=== PATIENT | female | born 1960 | race Caucasian/White ===

== ENCOUNTER 2021-05-21 12:22 | Inpatient (IN) ==
[2021-05-21 13:25] LABS: Basophils % 0.3 % (0.0-0.8); Hematocrit 36.8 VOL% (35.7-47.0); Hemoglobin 13.4 GM/DL (12.0-16.0); Immature Granulocytes % 1.2 %; Immature Granulocytes Absolute 0.13 #; Lymphocytes # 0.5 10*3/uL (1.4-4.0); Lymphocytes % 4.9 % (21.3-54.2); Mean Corpuscular HGB Conc 36.4 GM/DL (32-36); Mean Corpuscular Volume 96.8 FL (87-102); Monocytes % 5.7 % (1.7-12.7); Neutrophils % 87.9 % (38.7-73.9); Platelet Count 228 T/CUMM (130-400); Red Cell Distribution Width 12.9 % (9.3-17.3); White Blood Count 10.5 T/CUMM (4-12)
[2021-05-21 13:38] LABS: Alanine Aminotransferase 17 U/L (13-56); Albumin 2.1 G/DL (3.4-5.0); Alkaline Phosphatase 68 U/L (45-117); Aspartate Amino Transferase 42 U/L (0-37); Bilirubin,Total < 0.39 MG/DL (0.20-1.00); Blood Urea Nitrogen 10 MG/DL (7-18); Calcium 8.4 MG/DL (8.5-10.1); Carbon Dioxide 27 MMOL/L (21-32); Estimated Glom Filtration Rate 102 ML/MIN; Glucose 94 MG/DL (74-106); Osmolality,Calculated 242.1 MOS/KG (273-304); Potassium 3.1 MMOL/L (3.5-5.1); Sodium 121 MMOL/L (136-145); Total Protein 6.7 G/DL (6.4-8.2)
[2021-05-21] MEDS ORDERED: ALBUTEROL/IPRATROPIUM 3 ML NEB RESP TX STA (14:06)
[2021-05-21 14:13] LABS: Band Neutrophils 4 % (0-10); Lymphocytes 11 % (20-55); Segmented Neutrophils 82 % (50-85); Total Cells Counted 100
[2021-05-21] MEDS ORDERED: SODIUM CHLORIDE 0.9% 1,000 ML IV STA (14:13)
[2021-05-21 14:14] LABS: Hypochromasia Slight; Macrocytosis 1+; Toxic Granulation 2+
[2021-05-21 14:15] LABS: Platelet Estimate Normal
[2021-05-21] MEDS ORDERED: POTASSIUM CHLORIDE 20 MEQ TABLET PO STA (14:31)
[2021-05-21] MEDS ORDERED: AZITHROMYCIN 250 MG TABLET PO STA (14:47)
[2021-05-21] MEDS ORDERED: cefTRIAXone 1,000 MG in SODIUM CHLORIDE 0.9% 100 ML IV STA (14:47)
[2021-05-21] MEDS ORDERED: DIAZEPAM 5 MG TABLET PO ONE (15:39)
[2021-05-21] MEDS: POTASSIUM CHLORIDE 20 MEQ TABLET PO SCH ×2 (16:48→20:50)
[2021-05-21] MEDS: PANTOPRAZOLE 40 MG TABLET PO SCH (16:48)
[2021-05-21] MEDS: LACTATED RINGERS 1,000 ML IV SCH (16:49)
[2021-05-21] MEDS: ENOXAPARIN 40 MG/0.4 ML SYRINGE SUBCUT SCH (19:40)
[2021-05-22] MEDS: POTASSIUM CHLORIDE 20 MEQ TABLET PO SCH ×2 (01:38→05:06)
[2021-05-22] MEDS: LACTATED RINGERS 1,000 ML IV SCH (05:07)
[2021-05-22 07:57] LABS: Basophils % 0.2 % (0.0-0.8); Hematocrit 33.2 VOL% (35.7-47.0); Hemoglobin 11.9 GM/DL (12.0-16.0); Immature Granulocytes % 1.1 %; Immature Granulocytes Absolute 0.11 #; Lymphocytes # 0.6 10*3/uL (1.4-4.0); Lymphocytes % 6.6 % (21.3-54.2); Mean Corpuscular HGB Conc 35.8 GM/DL (32-36); Mean Corpuscular Volume 97.9 FL (87-102); Mean Platelet Volume 9.9 FL (9.6-12.0); Monocytes % 7.9 % (1.7-12.7); Neutrophils % 84.2 % (38.7-73.9); Platelet Count 246 T/CUMM (130-400); Red Blood Count 3.39 MC/CUMM (3.8-5.5); Red Cell Distribution Width 13.2 % (9.3-17.3); White Blood Count 9.6 T/CUMM (4-12)
[2021-05-22 08:14] LABS: Calcium 7.7 MG/DL (8.5-10.1); Osmolality,Calculated 248.5 MOS/KG (273-304); Potassium 4.1 MMOL/L (3.5-5.1)
[2021-05-22] MEDS ORDERED: AZITHROMYCIN 250 MG TABLET PO SCH (09:00)
[2021-05-22] MEDS: PANTOPRAZOLE 40 MG TABLET PO SCH (09:49)
[2021-05-22] MEDS: cefTRIAXone 1,000 MG in SODIUM CHLORIDE 0.9% 100 ML IV SCH (09:50)
[2021-05-22] MEDS: SODIUM CHLORIDE 0.9% 1,000 ML IV SCH (09:51)
[2021-05-22] MEDS: ONDANSETRON 4 MG/2 ML VIAL IV PRN (09:51)
[2021-05-22] MEDS: DIAZEPAM 5 MG TABLET PO PRN ×2 (10:06→21:59)
[2021-05-22] MEDS: AZITHROMYCIN INJ 500 MG in SODIUM CHLORIDE 0.9% 250 ML IV SCH (12:14)
[2021-05-22 12:22] LABS: Calcium 7.5 MG/DL (8.5-10.1); Osmolality,Calculated 251.2 MOS/KG (273-304)
[2021-05-22] MEDS: busPIRone 10 MG TABLET PO SCH ×2 (15:21→21:59)
[2021-05-22 16:08] LABS: Calcium 7.7 MG/DL (8.5-10.1); Osmolality,Calculated 251.2 MOS/KG (273-304); Potassium 3.9 MMOL/L (3.5-5.1)
[2021-05-22] MEDS: ENOXAPARIN 40 MG/0.4 ML SYRINGE SUBCUT SCH (17:47)
[2021-05-22 20:07] LABS: Calcium 7.9 MG/DL (8.5-10.1); Osmolality,Calculated 249.4 MOS/KG (273-304); Potassium 3.9 MMOL/L (3.5-5.1)
[2021-05-23 01:18] LABS: Calcium 7.6 MG/DL (8.5-10.1); Osmolality,Calculated 253.1 MOS/KG (273-304); Potassium 3.3 MMOL/L (3.5-5.1)
[2021-05-23 07:23] LABS: Basophils % 0.3 % (0.0-0.8); Eosinophils % 0.1 % (0.00-10.9); Hematocrit 31.7 VOL% (35.7-47.0); Hemoglobin 11.4 GM/DL (12.0-16.0); Immature Granulocytes % 1.4 %; Immature Granulocytes Absolute 0.11 #; Lymphocytes # 0.8 10*3/uL (1.4-4.0); Lymphocytes % 10.3 % (21.3-54.2); Mean Corpuscular Volume 97.5 FL (87-102); Mean Platelet Volume 10.1 FL (9.6-12.0); Monocytes % 9.9 % (1.7-12.7); Platelet Count 308 T/CUMM (130-400); Red Blood Count 3.25 MC/CUMM (3.8-5.5); Red Cell Distribution Width 13.4 % (9.3-17.3); White Blood Count 7.9 T/CUMM (4-12)
[2021-05-23 07:51] LABS: Calcium 7.7 MG/DL (8.5-10.1); Osmolality,Calculated 256.8 MOS/KG (273-304); Potassium 3.4 MMOL/L (3.5-5.1)
[2021-05-23] MEDS ORDERED: ALBUTEROL/IPRATROPIUM 3 ML NEB RESP TX STA (09:32)
[2021-05-23] MEDS: FOLIC ACID 1 MG TABLET PO SCH (10:45)
[2021-05-23] MEDS: busPIRone 10 MG TABLET PO SCH ×3 (10:45→20:47)
[2021-05-23] MEDS: PANTOPRAZOLE 40 MG TABLET PO SCH (10:45)
[2021-05-23] MEDS: MULTIVITAMIN (CENTRUM) TABLET PO SCH (10:45)
[2021-05-23] MEDS: THIAMINE 100 MG TABLET PO SCH (10:45)
[2021-05-23] MEDS: DIAZEPAM 5 MG TABLET PO PRN ×3 (10:46→20:47)
[2021-05-23] MEDS: POTASSIUM CHLORIDE 20 MEQ TABLET PO SCH ×2 (10:47→12:11)
[2021-05-23] MEDS: cefTRIAXone 1,000 MG in SODIUM CHLORIDE 0.9% 100 ML IV SCH (10:47)
[2021-05-23] MEDS: SODIUM CHLORIDE 0.9% 1,000 ML IV SCH ×2 (12:12)
[2021-05-23] MEDS: AZITHROMYCIN INJ 500 MG in SODIUM CHLORIDE 0.9% 250 ML IV SCH (12:12)
[2021-05-23] MEDS: ALBUTEROL/IPRATROPIUM 3 ML NEB RESP TX SCH ×2 (13:05→19:35)
[2021-05-23] MEDS: ONDANSETRON 4 MG/2 ML VIAL IV PRN (15:54)
[2021-05-23] MEDS ORDERED: VANCOMYCIN INJ 1,750 MG in SODIUM CHLORIDE 0.9% 500 ML IV ONE (16:00)
[2021-05-23] MEDS: ENOXAPARIN 40 MG/0.4 ML SYRINGE SUBCUT SCH (17:52)
[2021-05-23] MEDS: ACETYLCYSTEINE 20% 800 MG/4 ML VIAL RESP TX SCH (19:35)
[2021-05-24] MEDS: ACETYLCYSTEINE 20% 800 MG/4 ML VIAL RESP TX SCH ×4 (00:29→20:12)
[2021-05-24] MEDS: ALBUTEROL/IPRATROPIUM 3 ML NEB RESP TX SCH ×4 (00:29→20:12)
[2021-05-24] MEDS: VANCOMYCIN INJ 1,250 MG in SODIUM CHLORIDE 0.9% 250 ML IV SCH ×2 (03:01→17:07)
[2021-05-24] MEDS: SODIUM CHLORIDE 0.9% 1,000 ML IV SCH (03:03)
[2021-05-24 05:53] LABS: Basophils % 0.5 % (0.0-0.8); Eosinophils # 0.1 10*3/uL (0.0-0.87); Eosinophils % 0.7 % (0.00-10.9); Immature Granulocytes % 2.1 %; Immature Granulocytes Absolute 0.17 #; Lymphocytes # 1.1 10*3/uL (1.4-4.0); Lymphocytes % 13.5 % (21.3-54.2); Mean Corpuscular HGB Conc 35.5 GM/DL (32-36); Mean Corpuscular Volume 100.3 FL (87-102); Monocytes % 9.9 % (1.7-12.7); Neutrophils % 73.3 % (38.7-73.9); Platelet Count 367 T/CUMM (130-400); Red Blood Count 3.09 MC/CUMM (3.8-5.5); Red Cell Distribution Width 14.2 % (9.3-17.3); White Blood Count 8.1 T/CUMM (4-12)
[2021-05-24 06:27] LABS: Albumin 1.8 G/DL (3.4-5.0); Bilirubin,Total 0.4 MG/DL (0.20-1.00); Osmolality,Calculated 264.2 MOS/KG (273-304); Potassium 4.4 MMOL/L (3.5-5.1); Total Protein 5.5 G/DL (6.4-8.2)
[2021-05-24] MEDS: MULTIVITAMIN (CENTRUM) TABLET PO SCH (09:58)
[2021-05-24] MEDS: busPIRone 10 MG TABLET PO SCH ×3 (09:58→21:01)
[2021-05-24] MEDS: THIAMINE 100 MG TABLET PO SCH (09:58)
[2021-05-24] MEDS: PANTOPRAZOLE 40 MG TABLET PO SCH (09:58)
[2021-05-24] MEDS: FOLIC ACID 1 MG TABLET PO SCH (09:58)
[2021-05-24] MEDS: cefTRIAXone 1,000 MG in SODIUM CHLORIDE 0.9% 100 ML IV SCH (09:58)
[2021-05-24] MEDS: DIAZEPAM 5 MG TABLET PO PRN ×3 (09:58→21:01)
[2021-05-24] MEDS: AZITHROMYCIN INJ 500 MG in SODIUM CHLORIDE 0.9% 250 ML IV SCH (10:49)
[2021-05-24] MEDS: ENOXAPARIN 40 MG/0.4 ML SYRINGE SUBCUT SCH (17:10)
[2021-05-25] MEDS: ACETYLCYSTEINE 20% 800 MG/4 ML VIAL RESP TX SCH ×4 (00:16→20:11)
[2021-05-25] MEDS: ALBUTEROL/IPRATROPIUM 3 ML NEB RESP TX SCH ×4 (00:16→19:27)
[2021-05-25] MEDS: VANCOMYCIN INJ 1,250 MG in SODIUM CHLORIDE 0.9% 250 ML IV SCH (05:15)
[2021-05-25] MEDS: DIAZEPAM 5 MG TABLET PO PRN ×2 (05:19→09:45)
[2021-05-25 05:59] LABS: Basophils % 0.5 % (0.0-0.8); Eosinophils # 0.1 10*3/uL (0.0-0.87); Eosinophils % 1.5 % (0.00-10.9); Hematocrit 30.9 VOL% (35.7-47.0); Hemoglobin 10.7 GM/DL (12.0-16.0); Immature Granulocytes % 2.6 %; Immature Granulocytes Absolute 0.16 #; Lymphocytes % 16.8 % (21.3-54.2); Mean Corpuscular HGB Conc 34.6 GM/DL (32-36); Mean Platelet Volume 9.6 FL (9.6-12.0); Monocytes % 10.7 % (1.7-12.7); Neutrophils % 67.9 % (38.7-73.9); Platelet Count 408 T/CUMM (130-400); Red Blood Count 3.06 MC/CUMM (3.8-5.5); Red Cell Distribution Width 14.3 % (9.3-17.3); White Blood Count 6.1 T/CUMM (4-12)
[2021-05-25 06:20] LABS: Hypochromasia 1+; Microcytosis 1+; Platelet Estimate Adequate
[2021-05-25 06:28] LABS: Osmolality,Calculated 269.8 MOS/KG (273-304); Potassium 3.9 MMOL/L (3.5-5.1)
[2021-05-25] MEDS: cefTRIAXone 1,000 MG in SODIUM CHLORIDE 0.9% 100 ML IV SCH (09:42)
[2021-05-25] MEDS: FOLIC ACID 1 MG TABLET PO SCH (09:43)
[2021-05-25] MEDS: THIAMINE 100 MG TABLET PO SCH (09:43)
[2021-05-25] MEDS: busPIRone 10 MG TABLET PO SCH ×3 (09:43→21:39)
[2021-05-25] MEDS: MULTIVITAMIN (CENTRUM) TABLET PO SCH (09:43)
[2021-05-25] MEDS: PANTOPRAZOLE 40 MG TABLET PO SCH (09:43)
[2021-05-25] MEDS ORDERED: DICYCLOMINE 10 MG CAPSULE PO PRN (11:15)
[2021-05-25] MEDS ORDERED: METHOCARBAMOL 750 MG TABLET PO PRN (11:15)
[2021-05-25] MEDS: AZITHROMYCIN INJ 500 MG in SODIUM CHLORIDE 0.9% 250 ML IV SCH (12:50)
[2021-05-25] MEDS: chlordiazePOXIDE 10 MG CAPSULE PO PRN (15:34)
[2021-05-25] MEDS: ENOXAPARIN 40 MG/0.4 ML SYRINGE SUBCUT SCH (17:17)
[2021-05-26] MEDS: ALBUTEROL/IPRATROPIUM 3 ML NEB RESP TX SCH ×4 (00:50→20:00)
[2021-05-26] MEDS: ACETYLCYSTEINE 20% 800 MG/4 ML VIAL RESP TX SCH ×2 (01:23→18:16)
[2021-05-26] MEDS ORDERED: PROMETHAZINE 25 MG/1 ML VIAL IM ONE (07:30)
[2021-05-26] MEDS ORDERED: MEPERIDINE 50 MG/1 ML VIAL IM ONE (07:30)
[2021-05-26] MEDS ORDERED: LIDOCAINE 1% 20 ML VIAL MISC INJ ONE (08:00)
[2021-05-26] MEDS ORDERED: LIDOCAINE 2% 20 ML VIAL RESP TX ONE (08:00)
[2021-05-26] MEDS ORDERED: MIDAZOLAM 2 MG/2 ML VIAL IV ONE (08:00)
[2021-05-26] MEDS ORDERED: LIDOCAINE 2% VISCOUS 100 ML BOTTLE SWISH/SPIT ONE (08:00)
[2021-05-26] MEDS: MULTIVITAMIN (CENTRUM) TABLET PO SCH (10:34)
[2021-05-26] MEDS: PANTOPRAZOLE 40 MG TABLET PO SCH (10:35)
[2021-05-26] MEDS: busPIRone 10 MG TABLET PO SCH ×3 (10:35→21:24)
[2021-05-26] MEDS: THIAMINE 100 MG TABLET PO SCH (10:35)
[2021-05-26] MEDS: FOLIC ACID 1 MG TABLET PO SCH (10:35)
[2021-05-26] MEDS: cefTRIAXone 1,000 MG in SODIUM CHLORIDE 0.9% 100 ML IV SCH (10:42)
[2021-05-26] MEDS: chlordiazePOXIDE 10 MG CAPSULE PO PRN ×2 (11:01→21:24)
[2021-05-26] MEDS: ENOXAPARIN 40 MG/0.4 ML SYRINGE SUBCUT SCH (17:25)
[2021-05-26] MEDS: CEFUROXIME 500 MG TABLET PO SCH (21:24)
[2021-05-27] MEDS: ALBUTEROL/IPRATROPIUM 3 ML NEB RESP TX SCH ×3 (01:36→12:13)
[2021-05-27 07:34] VITALS: BP 124/67
[2021-05-27] MEDS: THIAMINE 100 MG TABLET PO SCH (10:09)
[2021-05-27] MEDS: MULTIVITAMIN (CENTRUM) TABLET PO SCH (10:09)
[2021-05-27] MEDS: FOLIC ACID 1 MG TABLET PO SCH (10:09)
[2021-05-27] MEDS: CEFUROXIME 500 MG TABLET PO SCH (10:09)
[2021-05-27] MEDS: busPIRone 10 MG TABLET PO SCH ×2 (10:09→14:15)
[2021-05-27] MEDS: PANTOPRAZOLE 40 MG TABLET PO SCH (10:10)
== END 2021-05-27 14:50 | disposition home or self-care (01) | DRG 140 ==
LOC: N.ED 12:22 → N.EDINP 15:06 → SUATTDRO 15:06 → N.EDINP 21:00
PROVIDERS: ADMIT Internal Medicine; ATTEND Internal Medicine